=== PATIENT | female | born 1960 ===

== ENCOUNTER 2024-04-09 00:58 | Emergency (ER) | payer SELFPAY ==
--- NOTE | 2024-04-09 01:49 | ED.GENMED ---
History of Present Illness
<Ion Simental Pranay, DO - Last Filed: 04/10/24 02:31>
General
Chief Complaint: Alcohol Problem
Time Seen by Provider: 04/09/24 01:45
History of Present Illness
History of Present Illness:
TIME OF INITIAL ENCOUNTER:
HPI: The patient is currently a very limited historian. She reportedly came in by ambulance as she was found to be intoxicated and 'passed out'. The patient does not currently answer questions appropriately. She does say that she wants to go home
to take care of her dog.
EXAM:
GENERAL: Well appearing in no distress, there is no evidence of trauma
HEENT: Moist oral mucosa
CARDIOVASCULAR: No murmurs, normal heart rate, regular rhythm, No chest wall tenderness
PULMONARY: No respiratory distress, breath sounds are clear and equal
ABDOMEN: Soft with no peritoneal signs, no tenderness
NEUROLOGIC: Excellent strength all extremities, no coordination deficits
PSYCHIATRIC: The patient appears to be moderately intoxicated
EXTREMITIES: Nontender, no edema, moves all extremities equally
SKIN: No rash, no lesions
NUMBER AND COMPLEXITY OF PROBLEMS ADDRESSED AT THE ENCOUNTER
� Chronic conditions affecting care: Unreliable history
� Acute Exacerbation and/or Progression of Chronic Illness: This is an acute problem
� Differential Diagnosis includes: Alcohol intoxication, other drug use, electrolyte abnormality, anemia
AMOUNT AND/OR COMPLEXITY OF DATA TO BE REVIEWED AND ANALYZED
� I performed an independent evaluation of and my interpretation is:
EKG:
CT:
X-rays:
Laboratory Studies: White count and hemoglobin are normal, MCV is normal, chemistries unremarkable, alcohol 301, UDS positive for cocaine
Other:
� Review of other/old records: No old records available for review
� Clinical information was obtained by an independent historian: EMS
� Prescriptions/Medications Considered but not given:
� Further testing considered but not performed:
RISK OF COMPLICATIONS AND/OR MORBIDITY OR MORTALITY OF PATIENT MANAGEMENT
� Social determinants of health affecting care: Presumably lives at home
� Discussion with other providers:
� Escalation of care including admission/observation vs risk of discharge considered: The patient was placed in 4 point restraints before my initial evaluation.
ANY OTHER UPDATES:
6:20 AM: I reassessed patient. Overall she has improved but not quite ready to be discharged at this time. Will continue to monitor.
Phy Exam
<Ion Pires, DO - Last Filed: 04/10/24 02:31>
Physical Exam
Physical Exam:
See HPI
Scores
<Cal Power, DO - Last Filed: 04/09/24 10:32>
Withdrawal Assessment of Alcohol
Withdrawal Assessment Completed?: Not applicable
Course
<Ion Pires, DO - Last Filed: 04/10/24 02:31>
Orders/Labs/Results
Orders:
Orders
04/09/24 02:03
Alcohol Urgent
Complete Blood Count/With Diff Urgent
Comprehensive Metabolic Panel Urgent
Manual Differential Urgent
04/09/24 03:34
Drug Screen, Urine [Urine Drug Abuse Screen] Urgent
Date Specimen was Collected: 04/09/24
Time Specimen was Collected: 03:30
Fentanyl, Urine Urgent
Abnormal Lab Results
04/09/24 04/09/24
02:03 03:34
MCHC 32.9 L g/dL
(33.0-37.0)
RDW 14.7 H %
(11.5-14.5)
Urine Cocaine Screen Positive H
(Negative)
04/09/24 02:03
04/09/24 02:03
Vital Signs
Initial and Last Documented VS:
Initial Vital Signs
Pulse Resp BP Pulse Ox
96 20 114/80 95
04/09/24 01:54 04/09/24 01:54 04/09/24 01:54 04/09/24 01:54
Last Documented Vital Signs
Temp Pulse Resp BP Pulse Ox
36.6 C 93 18 142/81 95
04/09/24 07:32 04/09/24 07:32 04/09/24 07:32 04/09/24 07:32 04/09/24 07:32
<Cal Power, DO - Last Filed: 04/09/24 10:32>
Orders/Labs/Results
Orders:
Orders
04/09/24 02:03
Alcohol Urgent
Complete Blood Count/With Diff Urgent
Comprehensive Metabolic Panel Urgent
Manual Differential Urgent
04/09/24 03:34
Drug Screen, Urine [Urine Drug Abuse Screen] Urgent
Date Specimen was Collected: 04/09/24
Time Specimen was Collected: 03:30
Fentanyl, Urine Urgent
Abnormal Lab Results
04/09/24 04/09/24
02:03 03:34
MCHC 32.9 L g/dL
(33.0-37.0)
RDW 14.7 H %
(11.5-14.5)
Urine Cocaine Screen Positive H
(Negative)
04/09/24 02:03
04/09/24 02:03
Vital Signs
Initial and Last Documented VS:
Initial Vital Signs
Pulse Resp BP Pulse Ox
96 20 114/80 95
04/09/24 01:54 04/09/24 01:54 04/09/24 01:54 04/09/24 01:54
Last Documented Vital Signs
Temp Pulse Resp BP Pulse Ox
36.6 C 93 18 142/81 95
04/09/24 07:32 04/09/24 07:32 04/09/24 07:32 04/09/24 07:32 04/09/24 07:32
<Cal Power, DO - Last Filed: 04/09/24 10:32>
*Critical Care Note
Total Time (30-74mins, 75-104mins- exclusive of procedures): Not Applicable
<Cal Power, DO - Last Filed: 04/09/24 10:32>
Update Note
Update Note:
7:20 AM
6 AM ER attending--signout pending sobriety, patient awake alert, admits to being out of the bar last night is not suicidal feeling fine would like to go home she lives in [place]
she is calling for a ride
ED Attending Note
<Ion Pires, DO - Last Filed: 04/10/24 02:31>
-
Portions of this chart may have been created with voice recognition software.� Occasional wrong word or��sound alike� substitutions may have occurred due to the inherent limitations of voice recognition software.
Discharge Plan
Departure
Patient Disposition: Home (Routine Discharge)
Date of Disposition: 04/09/24
Time of Disposition: 07:19
Patient with high blood pressure during this ER visit?: No
Condition: Good
Covid-19: Not Applicable
Discharge Problem:
Alcohol intoxication
Instructions: Alcohol use - When is drinking a problem?
Prescriptions:
No Action
Unobtainable
0
Activity Restrictions/Additional Instructions:
Follow with your primary care doctor. Return here if worse or other concerns. No driving today. Alcohol level was high at 301 and cocaine was positive on the urine drug screen.
Interventions
Interventions:
*Risk Screen - Suicide Last Done: 04/09/24 01:04
*General Assessment Last Done: 04/09/24 01:04
*Neglect/Abuse Screening Last Done: 04/09/24 01:04
ED- Fall Risk Assessment Last Done: 04/09/24 01:30
*ED COVID-19 Vaccine History Last Done: 04/09/24 01:28
*Nursing Disposition Last Done: 04/09/24 09:13
ED- Neurological Assessment Last Done: 04/09/24 01:30
ED-Psychological Assessment Last Done: 04/09/24 01:30
Discharge Date and Time
Discharge Date/Time: 04/09/24 09:14
Print Language: [id number]
[2024-04-09 01:54] VITALS: BP 114/80
[2024-04-09 02:17] LABS: Hematocrit 41.9 % (37.0-47.0); Hemoglobin 13.8 g/dL (12.0-16.0); Mean Corp Hgb Conc. 32.9 g/dL (33.0-37.0); Mean Corpuscular Hgb 27.6 pg (27.0-31.0); Mean Corpuscular Volume 83.8 fL (81.0-99.0); Mean Platelet Volume 9.6 fL (7.4-10.4); Platelet Count 345 10^3/uL (130-400); Red Cell Dist. Width 14.7 % (11.5-14.5); White Blood Cell Count 6.5 10^3/uL (4.8-10.8)
[2024-04-09 02:35] LABS: ALT (SGPT) 25 U/L (0-35); AST (SGOT) 34 U/L (14-36); Albumin 4.3 g/dl (3.5-5.0); Alkaline Phosphatase 71 U/L (38-126); Blood Urea Nitrogen 11 mg/dl (7-17); Calcium 9.5 mg/dl (8.4-10.2); Carbon Dioxide 26 mmol/L (22-30); Chloride 106 mmol/L (98-107); Glucose 93 mg/dl (70-99); Potassium 5.1 mmol/L (3.5-5.1); Sodium 145 mmol/L (135-145); Total Bilirubin 0.4 mg/dl (0.2-1.3); eGFR > 60.00
[2024-04-09 02:46] LABS: Alcohol 301 mg/dl
[2024-04-09 04:27] LABS: Amphetamines Negative (Negative); Barbiturates Negative (Negative); Benzodiazepines Negative (Negative); Buprenorphine Negative (Negative); Cocaine Positive (Negative); Marijuana Negative (Negative); Methadone Negative (Negative); Methamphetamines Negative (Negative); Opiates Negative (Negative); Phencyclidine Negative (Negative); Tricyclic Antidepressants Negative (Negative)
[2024-04-09 04:36] LABS: Fentanyl, Urine Negative (Negative)
[2024-04-09 05:24] LABS: Absolute Neutrophils -Man Diff 3.3 10^3/uL (1.4-6.5); Atypical Lymphocytes 8 %; Band Neutrophils 0 % (0-3); Eosinophils 2 % (0-6); Lymphocytes 31 % (20-51); Monocytes 7 % (2-9); Segmented Neutrophils 52 % (42-75)
[2024-04-09 05:25] LABS: Normal RBC Morphology No; Platelets Checked Yes
[2024-04-09 05:26] LABS: Anisocytosis Slight; Target Cells 1+; Total Cells Counted 100
[2024-04-09 07:32] VITALS: BP 142/81
== END 2024-04-09 09:14 | disposition home or self-care (01) ==
LOC: EMR 00:58
PROVIDERS: EMERGENCY PHYSICIAN Emergency Medicine
DX: F10.129 Alcohol abuse with intoxication, unspecified (principal)
CPT/HCPCS: 99283; 80053; 80306; 80307; 82077; 85025